=== PATIENT | female | born 1950 | race Two or more races ===

== ENCOUNTER 2023-11-01 13:02 | Emergency (ER) | payer OTHER ==
[2023-11-01 13:11] VITALS: BP 153/70; PULSE 67; RESP 18; TEMP 97.9; BMI 33.7
[2023-11-01 14:14] LABS: EPI CELLS 9 /uL (0-25.1); HYALINE CASTS 1 /uL (0-3.1); PH,URINE 5.5 (5.0-8.0); URINE APPEARANCE CLEAR; URINE BACTERIA 15 /uL (0-1359); URINE BILIRUBIN NEGATIVE (NEGATIVE); URINE COLOR DK YELLOW; URINE GLUCOSE (UA) NEGATIVE (NEGATIVE); URINE KETONE NEGATIVE (NEGATIVE); URINE LEUK ESTERASE 1+ (NEGATIVE); URINE NITRITE NEGATIVE (NEGATIVE); URINE PROTEIN NEGATIVE (NEGATIVE); URINE RBC 13 /uL (0-23.9); URINE WBC 8 /uL (0-25.8)
[2023-11-01] MEDS ORDERED: ACETAMINOPHEN INJECTION 100 ML IVPB ONE (15:00)
[2023-11-01] MEDS: ACETAMINOPHEN 1000 MG/100 ML BAG IVPB ONE (15:27)
[2023-11-01] MEDS: SODIUM CHLORIDE 0.9% 500 ML INFUS.BAG IV ONE (15:27)
[2023-11-01 15:30] LABS: BASO % 0.8 % (0-2.0); EOS % 4.2 % (0-4.5); HEMATOCRIT 42.1 % (32.4-45.2); HEMOGLOBIN 13.8 GM/dL (10.7-15.3); LYMPH % 43.4 % (8-40); MCHC 32.9 g/dl (32.0-36.0); MEAN CELL VOLUME 88.3 fl (80-96); MEAN PLT VOLUME 8.9 fl (7.5-11.1); MONO % 7.8 % (3.8-10.2); NEUT % 43.8 % (42.8-82.8); PLATELET COUNT 239 10^3/uL (134-434); RBC 4.77 M/mm3 (3.60-5.2); RDW 15.2 % (11.6-15.6)
[2023-11-01 15:56] LABS: POTASSIUM 4.5 mmol/L (3.5-5.1)
[2023-11-01 15:59] LABS: CALCIUM 9.5 mg/dL (8.5-10.1)
[2023-11-01 16:00] LABS: ALBUMIN 3.9 g/dl (3.4-5.0); BLOOD UREA NITROGEN 16.4 mg/dL (7-18)
[2023-11-01 16:04] LABS: BILIRUBIN,TOTAL 0.4 mg/dL (0.2-1); TOT PROT 7.1 g/dl (6.4-8.2)
== END 2023-11-01 18:42 | disposition home or self-care (01) ==
LOC: JERFT 13:02
PROC: 3E033NZ Introduction of Analgesics, Hypnotics, Sedatives into Peripheral Vein, Percutaneous Approach (ICD-10-PCS; principal; 2023-11-01)
DX: R10.31 Right lower quadrant pain (principal); R10.2 Pelvic and perineal pain; R35.0 Frequency of micturition; R30.0 Dysuria
CPT/HCPCS: 36415; 74177-TC; 80053; 81003; 85025; 87086; 99285-25; J0131; Q9967